=== PATIENT | male | born 1970 | race Caucasian/White ===

== ENCOUNTER 2017-06-22 23:43 | Inpatient (IN) | payer BC, MEDICARE ==
[2017-07-01] MEDS ORDERED: FISH OIL 1,2001 EAC1 PO (15:31)
[2017-07-01] MEDS ORDERED: MEN 50 PLUS MU1 EACH PO (15:32)
[2017-07-01] MEDS ORDERED: ASPIR-LOW81 MG PO (15:32)
[2017-07-01] MEDS ORDERED: ZINC50 M1 PO (15:32)
[2017-07-01] MEDS ORDERED: TOPROL XL50 MG PO (15:32)
[2017-07-01] MEDS ORDERED: VITAMIN D35000 UNI1 PO (15:32)
[2017-07-01] MEDS ORDERED: EFFEXOR XR75 MG PO (15:33)
[2017-07-01] MEDS ORDERED: GLUCOPHAGE-DPS500 MG PO (15:33)
[2017-07-01] MEDS ORDERED: SUPER B COMPLE150 MG PO (15:33)
[2017-07-01] MEDS ORDERED: MYCOSTATIN PWD15 GM TP (15:34)
[2017-07-01] MEDS ORDERED: TEFLARO600 MG IV (15:35)
[2017-07-01] MEDS ORDERED: METRONIDAZOLE500 MG PO (15:35)
[2017-07-01] MEDS ORDERED: VALTREX DPS500 MG PO (15:36)
== END 2017-06-30 16:53 | disposition home health service (06) | DRG 872 ==
DX: A41.9 Sepsis, unspecified organism (principal); Z68.44 Body mass index [BMI] 60.0-69.9, adult; I10 Essential (primary) hypertension; L03.116 Cellulitis of left lower limb; E66.01 Morbid (severe) obesity due to excess calories; B00.1 Herpesviral vesicular dermatitis; E87.6 Hypokalemia; R09.02 Hypoxemia; E11.9 Type 2 diabetes mellitus without complications; F32.9 Major depressive disorder, single episode, unspecified; I87.2 Venous insufficiency (chronic) (peripheral); G47.33 Obstructive sleep apnea (adult) (pediatric); Z79.82 Long term (current) use of aspirin; Z82.49 Family history of ischemic heart disease and other diseases of the circulatory system

== ENCOUNTER → 2017-07-08 | Outpatient (CLI) | payer BC, MEDICARE ==
[~2017-07-08] MED LIST: ASPIR-LOW81 MG PO; EFFEXOR XR75 MG PO; FISH OIL 1,2001 EAC1 PO; GLUCOPHAGE-DPS500 MG PO; MEN 50 PLUS MU1 EACH PO; METRONIDAZOLE500 MG PO; MYCOSTATIN PWD15 GM TP; SUPER B COMPLE150 MG PO; TEFLARO600 MG IV; TOPROL XL50 MG PO; VALTREX DPS500 MG PO; VITAMIN D35000 UNI1 PO; ZINC50 M1 PO
--- NOTE | ~2017-07-08 | SS ---
ADMIT: 07/08/2017 RM/LOC: [facility] MR#: [id number] [address] [facility] [address] [place] [id number] FELY ATKINSON [address] [place] [id number] Sleep Study SEX: M AGE: 47 : 1970 STUDY DATE: 07/08/2017 CLINICAL HISTORY: A 47-year-old male, body mass 59.1, 69 inches tall, 399 pounds, in the sleep lab for evaluation of obstructive sleep apnea. TECHNICAL DESCRIPTION: Split night polysomnogram performed on 07/08/2017, attended by a trained polysomnographic technologist. DIAGNOSTIC POLYSOMNOGRAM FINDINGS: SLEEP: Total time in bed is 67.5 minutes, total sleep time 61 minutes, sleep efficiency 90.4%. 85.4% of time was spent in stage II sleep. No REM sleep was seen. BREATHING: Severe positional obstructive sleep apnea with apnea-hypopnea of 109.2. During the study, there were 93 obstructive apneas, 18 obstructive hypopneas noted. OXYGEN SATURATION: Low baseline oxygen saturation 79%. 18.1% of time was spent in saturating 80% to 89%. 81.1% of time was spent saturating 70% to 79%. CARDIAC: Average heart rate is 64 beats per minute MOVEMENTS/POSITION: During the study, the patient slept in the supine position with severe periodic leg movement of sleep. Periodic leg movement index of 110.2. CPAP/BIPAP TITRATION FINDINGS: TITRATION DESCRIPTION: The patient was titrated from 5 cm CPAP to 20 cm CPAP. The patient was briefly titrated on BiPAP from to . An AirFit F10 full face mask size medium was used as interface. SLEEP: Total time in bed is 327.5 minutes, total sleep time 316.5 minutes, sleep efficiency 96.6%. 58% hours spent in stage II sleep, REM rebound with 36.6% hours stage REM. Initially, the patient had ongoing obstructive apneas and hypopneas during CPAP titration up to 20 cm. The patient was then switched to BiPAP and still had a few obstructive hypopneas. In the last half of the night, the patient was restarted on CPAP and appeared to have good resolution of obstructive events on CPAP at 20 cm. The patient was seen in REM sleep in supine position with complete resolution of obstructive events. Oxygen saturations, however, less than 88% for greater than 5 minutes and hence 2 L of oxygen was added during the study. At the end of the study, oxygen saturation still hovered around 87% to 88%. CARDIAC: Average heart rate is 68 beats per minute. MOVEMENTS/POSITION: During the titration, the patient slept in the supine ADMIT: 07/08/2017 RM/LOC: [facility] MR#: [id number] [address] [place] [id number] FELY ATKINSON [address] [place] [address] Sleep Study SEX: M AGE: 47 : 1970 position with a periodic leg movement index of 17.1. IMPRESSION AND PLAN: Severe positional obstructive sleep apnea with apnea 109.2. Severe baseline hypoxemia, possibly related to underlying lung disease in combination with obesity hypoventilation. Recommend using CPAP at 20 cm with 4 L of oxygen bled in with mask as mentioned above. Recommend losing weight, avoiding sedatives or alcohol, refrain from driving if excessively sleepy. Recommend avoiding sleeping in supine position. Clinical correlation needed. CPAP compliance followup is recommended. Anderson Humphreys MD/ [facility] JOB #: [id number] CC: Tino Saab MD, Attending Physician Tino Saab MD, Family Physician Tino Saab MD
== END | disposition home or self-care (01) ==
LOC: RESC 19:48
DX: G47.30 Sleep apnea, unspecified (principal); G47.33 Obstructive sleep apnea (adult) (pediatric)